=== PATIENT | female | born 1970 | race Caucasian/White ===

== ENCOUNTER → 2019-03-24 | Day surgery (SDC) | payer OTHER ==
[~2019-03-24] MED LIST: FENTANYL CITRATE/PF 100MCG/2 ML INJ ONE; FERROUS SULFAT325 MG PO; GLUCAGON FOR INJ 1 MG VIAL ONE; MIDAZOLAM HCL 2 MG/2 ML VIAL ONE; PROPOFOL IV EMULSION 10 MG/ML 50 ML VIAL ONE; VITAMIN B122500 MCG PO; ZYRTEC10 M3 PO
--- NOTE | 2019-03-24 07:10 | NUR ---
SPIRITUAL CARE - Pre-Surgery Assessment: Pt in bed. Pt's at bedside. Pt reported supportive attention from family and friends. Intervention: I provided pastoral presence, hospitality, and sympathetic listening. I acquainted pt with availability of lithographic press feeder while hospitalized. Outcome: Pt expressed appreciation for visit. No need for follow up indicated at this time. CARMELO [facility] Spiritual Care Department O: [phone] Pager: [phone] ([phone])
[2019-03-24 09:02] VITALS: BP 99/68
== END | disposition home or self-care (01) ==
LOC: OR 05:46
PROVIDERS: ATTEND Internal Medicine Gastroenterology
DX: Z12.11 Encounter for screening for malignant neoplasm of colon (principal); D12.2 Benign neoplasm of ascending colon; K29.50 Unspecified chronic gastritis without bleeding; K29.80 Duodenitis without bleeding; B96.81 Helicobacter pylori [H. pylori] as the cause of diseases classified elsewhere; K57.30 Diverticulosis of large intestine without perforation or abscess without bleeding; K44.9 Diaphragmatic hernia without obstruction or gangrene; K64.8 Other hemorrhoids; D50.9 Iron deficiency anemia, unspecified; D72.820 Lymphocytosis (symptomatic); I34.1 Nonrheumatic mitral (valve) prolapse; Z01.810 Encounter for preprocedural cardiovascular examination
CPT/HCPCS: 36415; 43239; 45384; 84702; 93005; J1610; J2250; J2704; J3010; 45378